=== PATIENT | male | born 1965 | race Caucasian/White ===

== ENCOUNTER 2022-10-21 18:27 | Inpatient (IN) | payer MEDICAID, OTHER ==
[~2022-10-21] VITALS: Ht 154.9 cm; Wt 86.6 kg
[2022-10-21] MEDS ORDERED: MORPHINE SULFATE 4 MG/ML CPJ (NOT FOR IM USE) IV ONE (20:45)
[2022-10-21] MEDS ORDERED: SODIUM CHLORIDE 0.9% 1,000 ML IV ONE (20:45)
[2022-10-21 20:54] LABS: BASOPHILS % 0.1 % (0.0-2.0); EOSINOPHILS % 0.1 % (0.0-5.0); HEMATOCRIT. 45.7 % (42.0-52.0); HEMOGLOBIN. 15.7 g/dL (14.0-18.0); LYMPHOCYTES % 7.9 % (20.0-50.0); MEAN CORPUSCULAR HEMOGLOBIN 30.7 pg (28.0-32.0); MEAN CORPUSCULAR VOLUME 89.6 fL (80.0-94.0); MEAN PLATELET VOLUME 8.4 fl (7.4-10.4); MONOCYTES % 2.4 % (2.0-8.0); NEUTROPHILS % 89.5 % (40.0-76.0); PLATELET 299 x1000/uL (130-400); RED CELL DISTRIBUTION WIDTH 13.3 % (11.6-14.6)
[2022-10-21] MEDS ORDERED: CEFTRIAXONE 1 G PREMIX 50 ML IV ONE (21:45)
[2022-10-21] MEDS ORDERED: SODIUM CHLORIDE 0.9% 1000ML BAG (SEPSIS BOLUS) IV ONE (21:45)
[2022-10-21] MEDS ORDERED: VANCOMYCIN 1G PREMIX 200 ML IV ONE (21:45)
[2022-10-21 22:50] LABS: CHLORIDE 88 mEq/L (98-107)
[2022-10-21] MEDS ORDERED: METRONIDAZOLE 500 MG PREMIX 100 ML IV ONE (23:00)
[2022-10-21] MEDS ORDERED: MORPHINE SULFATE 4 MG/ML CPJ (NOT FOR IM USE) IV NR (23:00)
[2022-10-22] MEDS ORDERED: FENTANYL CITRATE/PF 50MCG/ML 2ML VIAL ONE ×2 (00:19→02:34)
[2022-10-22] MEDS ORDERED: PROPOFOL 200MG/20ML VIAL IV ONE (00:20)
[2022-10-22] MEDS ORDERED: ROCURONIUM BROMIDE 10MG/ML VIAL 5ML IV ONE ×2 (00:23→02:07)
[2022-10-22] MEDS ORDERED: MORPHINE SULFATE 2 MG/ML CPJ (NOT FOR IM USE) IV PRN (01:30)
[2022-10-22] MEDS ORDERED: DEXT 5%/0.45% NACL KCL 20MEQ/L 1,000 ML IV SCH (01:30)
[2022-10-22] MEDS ORDERED: MORPHINE SULFATE 4 MG/ML CPJ (NOT FOR IM USE) IV PRN (01:30)
[2022-10-22] MEDS ORDERED: NALOXONE HCL 0.4MG/ML VIAL IV PRN ×2 (01:45→03:15)
[2022-10-22] MEDS ORDERED: ONDANSETRON HCL 4MG/2ML INJ ONE (02:21)
[2022-10-22] MEDS ORDERED: NEOSTIGMINE METHYLSULFATE 1MG/ML 10 ML VIAL ONE (02:22)
[2022-10-22] MEDS ORDERED: GLYCOPYRROLATE 0.2 MG/ML 2ML VIAL ONE ×2 (02:23)
[2022-10-22] MEDS ORDERED: HYDROMORPHONE HCL/PF 2MG/ML CPJ IV PRN (02:45)
[2022-10-22] MEDS ORDERED: ONDANSETRON HCL 4MG/2ML INJ IV PRN (02:45)
[2022-10-22] MEDS ORDERED: DIPHENHYDRAMINE INJ IV PRN (03:00)
[2022-10-22] MEDS ORDERED: ONDANSETRON INJ IV PRN (03:00)
[2022-10-22] MEDS: HYDROMORPHONE PCA 10MG/50ML IV PRN (03:06)
[2022-10-22 04:00] VITALS: BP 121/92
[2022-10-22] MEDS: DEXT 5%/0.45% NACL KCL 20MEQ/L 1,000 ML IV SCH ×2 (07:47→18:02)
[2022-10-22 08:00] VITALS: BP 137/91
[2022-10-22] MEDS: FAMOTIDINE 20MG/2ML VIAL IV SCH ×2 (08:46→21:09)
[2022-10-22 12:00] VITALS: BP 128/92
[2022-10-22] MEDS: PIPERACILLIN/TAZOBACTAM 3.375 G in DEXTROSE 5% WATER 50 ML IV SCH ×2 (14:23→21:09)
[2022-10-22 16:00] VITALS: BP 140/99
[2022-10-22 20:00] VITALS: BP 129/90
[2022-10-23] VITALS: BP 132/90
[2022-10-23 04:00] VITALS: BP 132/90
[2022-10-23] MEDS: DEXT 5%/0.45% NACL KCL 20MEQ/L 1,000 ML IV SCH ×3 (05:22→21:25)
[2022-10-23] MEDS: PIPERACILLIN/TAZOBACTAM 3.375 G in DEXTROSE 5% WATER 50 ML IV SCH ×3 (05:28→23:03)
[2022-10-23 08:00] VITALS: BP 126/57
[2022-10-23 09:08] LABS: HEMATOCRIT. 38.6 % (42.0-52.0); HEMOGLOBIN. 13.3 g/dL (14.0-18.0); MEAN CORPUSCULAR HEMOGLOBIN 30.5 pg (28.0-32.0); MEAN CORPUSCULAR VOLUME 88.7 fL (80.0-94.0); MEAN PLATELET VOLUME 8.6 fl (7.4-10.4); PLATELET 231 x1000/uL (130-400); RED BLOOD CELL COUNT 4.36 mill/uL (4.7-6.1); RED CELL DISTRIBUTION WIDTH 13.3 % (11.6-14.6)
[2022-10-23] MEDS: FAMOTIDINE 20MG/2ML VIAL IV SCH ×2 (09:08→21:25)
[2022-10-23] MEDS: HYDROMORPHONE PCA 10MG/50ML IV PRN (09:21)
[2022-10-23 09:30] LABS: CHLORIDE 90 mEq/L (98-107)
[2022-10-23] MEDS ORDERED: POTASSIUM CHLORIDE INJ 40 MEQ in DEXT 5% WATER 500 ML IV NR (11:00)
[2022-10-23 14:02] LABS: PLATELET ESTIMATE NORMAL
[2022-10-23 16:00] VITALS: BP 142/95
[2022-10-23 20:00] VITALS: BP 127/83
[2022-10-24] VITALS: BP 140/91
[2022-10-24 04:00] VITALS: BP 134/65
[2022-10-24] MEDS: PIPERACILLIN/TAZOBACTAM 3.375 G in DEXTROSE 5% WATER 50 ML IV SCH ×3 (06:11→21:37)
[2022-10-24 08:00] VITALS: BP 123/84
[2022-10-24 08:42] LABS: HEMATOCRIT. 37.2 % (42.0-52.0); MEAN CORPUSCULAR HEMOGLOBIN 31.1 pg (28.0-32.0); MEAN CORPUSCULAR VOLUME 88.7 fL (80.0-94.0); MEAN PLATELET VOLUME 8.8 fl (7.4-10.4); PLATELET 220 x1000/uL (130-400); RED BLOOD CELL COUNT 4.19 mill/uL (4.7-6.1); RED CELL DISTRIBUTION WIDTH 13.1 % (11.6-14.6)
[2022-10-24 08:48] LABS: CHLORIDE 90 mEq/L (98-107)
[2022-10-24] MEDS: DEXT 5%/0.45% NACL KCL 20MEQ/L 1,000 ML IV SCH ×2 (09:21→15:36)
[2022-10-24] MEDS: FAMOTIDINE 20MG/2ML VIAL IV SCH ×2 (09:21→21:37)
[2022-10-24 12:00] VITALS: BP 134/85
[2022-10-24] MEDS ORDERED: POTASSIUM CHLORIDE INJ 40 MEQ in DEXT 5% WATER 250 ML IV ONE (12:45)
[2022-10-24] MEDS: MICAFUNGIN 100 MG in SODIUM CHLORIDE 0.9% 100 ML IV SCH (14:00)
[2022-10-24 14:48] LABS: PLATELET ESTIMATE NORMAL
[2022-10-24] MEDS: KCL 20MEQ/100ML X 2 FOR TOTAL KCL 40MEQ/200ML IV SCH ×2 (15:36→17:36)
[2022-10-24 16:00] VITALS: BP 126/86
[2022-10-24] MEDS: POTASSIUM CHLORIDE INJ 30 MEQ in DEXT 5%/0.9% NACL 1,000 ML IV SCH (17:37)
[2022-10-24 20:00] VITALS: BP 138/94
[2022-10-25] VITALS: BP 125/73
[2022-10-25] MEDS: POTASSIUM CHLORIDE INJ 30 MEQ in DEXT 5%/0.9% NACL 1,000 ML IV SCH ×3 (01:09→21:27)
[2022-10-25 04:00] VITALS: BP 123/75
[2022-10-25] MEDS: PIPERACILLIN/TAZOBACTAM 3.375 G in DEXTROSE 5% WATER 50 ML IV SCH ×3 (05:39→21:07)
[2022-10-25 06:41] LABS: HEMATOCRIT. 37.4 % (42.0-52.0); HEMOGLOBIN. 13.1 g/dL (14.0-18.0); MEAN CORPUSCULAR HEMOGLOBIN 31.1 pg (28.0-32.0); MEAN CORPUSCULAR VOLUME 88.9 fL (80.0-94.0); MEAN PLATELET VOLUME 8.4 fl (7.4-10.4); PLATELET 241 x1000/uL (130-400); RED BLOOD CELL COUNT 4.21 mill/uL (4.7-6.1); RED CELL DISTRIBUTION WIDTH 13.1 % (11.6-14.6)
[2022-10-25 06:52] LABS: CHLORIDE 94 mEq/L (98-107)
[2022-10-25 08:00] VITALS: BP 139/87
[2022-10-25] MEDS: FAMOTIDINE 20MG/2ML VIAL IV SCH ×2 (08:21→21:07)
[2022-10-25 12:00] VITALS: BP 141/95
[2022-10-25] MEDS: MICAFUNGIN 100 MG in SODIUM CHLORIDE 0.9% 100 ML IV SCH (14:16)
[2022-10-25 14:38] LABS: ATYPICAL LYMPHOCYTES 1; PLATELET ESTIMATE NORMAL
[2022-10-25 16:00] VITALS: BP 130/78
[2022-10-25] MEDS ORDERED: MORPHINE SULFATE 2 MG/ML CPJ (NOT FOR IM USE) IV PRN (16:30)
[2022-10-25 20:00] VITALS: BP 131/94
[2022-10-26] VITALS: BP 143/88
[2022-10-26 04:00] VITALS: BP 139/89
[2022-10-26] MEDS: PIPERACILLIN/TAZOBACTAM 3.375 G in DEXTROSE 5% WATER 50 ML IV SCH ×3 (05:12→21:47)
[2022-10-26 06:59] LABS: CHLORIDE 98 mEq/L (98-107)
[2022-10-26 07:02] LABS: BASOPHILS % 0.3 % (0.0-2.0); EOSINOPHILS % 1.4 % (0.0-5.0); HEMATOCRIT. 36.5 % (42.0-52.0); HEMOGLOBIN. 12.7 g/dL (14.0-18.0); LYMPHOCYTES % 7.8 % (20.0-50.0); MEAN CORPUSCULAR HEMOGLOBIN 31.1 pg (28.0-32.0); MEAN CORPUSCULAR VOLUME 89.5 fL (80.0-94.0); MEAN PLATELET VOLUME 8.1 fl (7.4-10.4); MONOCYTES % 7.6 % (2.0-8.0); NEUTROPHILS % 82.9 % (40.0-76.0); PLATELET 284 x1000/uL (130-400); RED BLOOD CELL COUNT 4.07 mill/uL (4.7-6.1); RED CELL DISTRIBUTION WIDTH 13.2 % (11.6-14.6)
[2022-10-26] MEDS: POTASSIUM CHLORIDE INJ 30 MEQ in DEXT 5%/0.9% NACL 1,000 ML IV SCH (07:36)
[2022-10-26 08:36] VITALS: BP 125/72
[2022-10-26] MEDS: FAMOTIDINE 20MG/2ML VIAL IV SCH ×2 (10:18→20:44)
[2022-10-26 12:09] VITALS: BP 122/75
[2022-10-26] MEDS: MICAFUNGIN 100 MG in SODIUM CHLORIDE 0.9% 100 ML IV SCH (15:54)
[2022-10-26 16:00] VITALS: BP 130/82
[2022-10-26] MEDS ORDERED: POTASSIUM CHLORIDE INJ 40 MEQ in DEXT 5% WATER 500 ML IV NR (16:00)
[2022-10-26 20:00] VITALS: BP 123/73
[2022-10-27] VITALS: BP 131/81
[2022-10-27] MEDS: POTASSIUM CHLORIDE INJ 30 MEQ in DEXT 5%/0.9% NACL 1,000 ML IV SCH ×2 (03:10→13:44)
[2022-10-27 04:00] VITALS: BP 139/84
[2022-10-27] MEDS: PIPERACILLIN/TAZOBACTAM 3.375 G in DEXTROSE 5% WATER 50 ML IV SCH ×3 (05:36→22:56)
[2022-10-27 08:00] VITALS: BP 158/88
[2022-10-27] MEDS: FAMOTIDINE 20MG/2ML VIAL IV SCH ×2 (08:37→20:55)
[2022-10-27] MEDS: MICAFUNGIN 100 MG in SODIUM CHLORIDE 0.9% 100 ML IV SCH (13:43)
[2022-10-27] MEDS ORDERED: DIATR MEGLU/DIATRIZOATE SOLN 30ML PO NR (15:45)
[2022-10-27 16:00] VITALS: BP 144/90
[2022-10-27 20:00] VITALS: BP 141/90
[2022-10-28] VITALS: BP 130/79
[2022-10-28] MEDS: POTASSIUM CHLORIDE INJ 30 MEQ in DEXT 5%/0.9% NACL 1,000 ML IV SCH ×3 (01:13→20:30)
[2022-10-28] MEDS ORDERED: IOHEXOL-300 100 ML BOTTLE ONE (01:45)
[2022-10-28 04:00] VITALS: BP 135/87
[2022-10-28] MEDS: PIPERACILLIN/TAZOBACTAM 3.375 G in DEXTROSE 5% WATER 50 ML IV SCH ×3 (06:03→22:00)
[2022-10-28 08:00] VITALS: BP 141/91
[2022-10-28] MEDS: FAMOTIDINE 20MG/2ML VIAL IV SCH ×2 (08:54→22:01)
[2022-10-28 12:00] VITALS: BP 129/85
[2022-10-28] MEDS: MICAFUNGIN 100 MG in SODIUM CHLORIDE 0.9% 100 ML IV SCH (13:43)
[2022-10-28 16:00] VITALS: BP 123/86
[2022-10-28 18:50] LABS: BASOPHILS % 0.3 % (0.0-2.0); HEMATOCRIT. 40.8 % (42.0-52.0); HEMOGLOBIN. 13.7 g/dL (14.0-18.0); LYMPHOCYTES % 13.5 % (20.0-50.0); MEAN CORPUSCULAR HEMOGLOBIN 30.5 pg (28.0-32.0); MEAN PLATELET VOLUME 8.2 fl (7.4-10.4); MONOCYTES % 5.4 % (2.0-8.0); NEUTROPHILS % 78.8 % (40.0-76.0); PLATELET 378 x1000/uL (130-400); RED BLOOD CELL COUNT 4.49 mill/uL (4.7-6.1); RED CELL DISTRIBUTION WIDTH 13.5 % (11.6-14.6)
[2022-10-28 19:15] LABS: CHLORIDE 100 mEq/L (98-107)
[2022-10-28 20:00] VITALS: BP 120/85
[2022-10-29] VITALS (7 sets, daily range): BP systolic 112–138; BP diastolic 73–91
[2022-10-29] MEDS: POTASSIUM CHLORIDE INJ 30 MEQ in DEXT 5%/0.9% NACL 1,000 ML IV SCH ×2 (05:46→16:48)
[2022-10-29] MEDS: PIPERACILLIN/TAZOBACTAM 3.375 G in DEXTROSE 5% WATER 50 ML IV SCH ×3 (05:46→22:30)
[2022-10-29] MEDS: FAMOTIDINE 20MG/2ML VIAL IV SCH (09:55)
[2022-10-29] MEDS ORDERED: OMEP40CA20 MT (10:22)
[2022-10-29] MEDS: MICAFUNGIN 100 MG in SODIUM CHLORIDE 0.9% 100 ML IV SCH (13:39)
[2022-10-29] MEDS: FAMOTIDINE 20MG TABLET PO SCH (21:00)
[2022-10-30] VITALS: BP 120/80
[2022-10-30 04:00] VITALS: BP 125/72
[2022-10-30] MEDS: POTASSIUM CHLORIDE INJ 30 MEQ in DEXT 5%/0.9% NACL 1,000 ML IV SCH (04:05)
[2022-10-30 08:00] VITALS: BP 137/86
[2022-10-30] MEDS: FAMOTIDINE 20MG TABLET PO SCH (09:51)
[2022-10-30] MEDS ORDERED: HYDR-4001 MT (10:05)
[2022-10-30 12:00] VITALS: BP 101/60
== END 2022-10-30 15:00 | disposition home or self-care (01) | DRG 710 ==
LOC: ER 18:27 → EDBEDREQTM 23:04 → EDBEDREQ 23:04 → EDBEDREQSVC 23:04 → MICUSO 23:53 → 6EST 10-22 04:28
PROVIDERS: ADMIT Internal Medicine; ATTEND Internal Medicine
PROC: 0WJG0ZZ Inspection of Peritoneal Cavity, Open Approach (ICD-10-PCS; principal; 2022-10-22)
DX: A41.9 Sepsis, unspecified organism (principal); K27.5 Chronic or unspecified peptic ulcer, site unspecified, with perforation; E87.20 Acidosis, unspecified; E44.1 Mild protein-calorie malnutrition; E87.1 Hypo-osmolality and hyponatremia; E88.09 Other disorders of plasma-protein metabolism, not elsewhere classified; Z20.822 Contact with and (suspected) exposure to COVID-19; E11.9 Type 2 diabetes mellitus without complications; R65.20 Severe sepsis without septic shock; I10 Essential (primary) hypertension; E78.00 Pure hypercholesterolemia, unspecified; F10.10 Alcohol abuse, uncomplicated; Z68.30 Body mass index [BMI] 30.0-30.9, adult; Z68.36 Body mass index [BMI] 36.0-36.9, adult
CPT/HCPCS: 36415; 71045; 74176; 74177; 80048; 80053; 83605; 83880; 84145; 84484; 85025; 87070; 87075; 87106; 87426; 97116; 97162; 99291; C9803; J0696; J1170; J2248; J2270; J2405; J2543; J2704; J2710; J3010; J3480; J3490; J7030; J7042; J7050; J7060; Q9963; Q9967

== ENCOUNTER 2022-11-06 10:04 | Emergency (ER) | payer OTHER ==
[~2022-11-06] VITALS: Ht 167.6 cm; Wt 79.0 kg
[~2022-11-06 10:04] MED LIST: HYDR-4001 MT; OMEP40CA20 MT
[2022-11-06 10:18] VITALS: BP 106/74
== END 2022-11-06 11:47 | disposition home or self-care (01) ==
LOC: ER 10:04
DX: Z48.00 Encounter for change or removal of nonsurgical wound dressing (principal)
CPT/HCPCS: 99281

== ENCOUNTER 2022-11-30 15:28 | Inpatient (IN) | payer OTHER ==
[~2022-11-30] VITALS: Ht 154.9 cm; Wt 81.6 kg
[2022-11-30 17:08] LABS: HEMATOCRIT. 42.8 % (42.0-52.0); HEMOGLOBIN. 14.4 g/dL (14.0-18.0); MEAN CORPUSCULAR HEMOGLOBIN 29.6 pg (28.0-32.0); MEAN CORPUSCULAR VOLUME 88.2 fL (80.0-94.0); MEAN PLATELET VOLUME 8.8 fl (7.4-10.4); PLATELET 221 x1000/uL (130-400); RED BLOOD CELL COUNT 4.85 mill/uL (4.7-6.1); RED CELL DISTRIBUTION WIDTH 14.5 % (11.6-14.6)
[2022-11-30 17:11] LABS: CHLORIDE 101 mEq/L (98-107)
[2022-11-30 17:12] LABS: PROTHROMBIN TIME 10.9 sec (9.6-11.0)
[2022-11-30 17:18] LABS: ETHANOL BLOOD < 10 mg/dL
[2022-11-30 18:19] LABS: PLATELET ESTIMATE NORMAL
[2022-11-30] MEDS ORDERED: MORPHINE SULFATE 4 MG/ML CPJ (NOT FOR IM USE) IV STA (22:59)
[2022-11-30] MEDS ORDERED: ONDANSETRON HCL 4MG/2ML INJ IV STA (22:59)
[2022-11-30] MEDS ORDERED: METRONIDAZOLE 500 MG PREMIX 100 ML IV ONE (23:00)
[2022-11-30] MEDS ORDERED: CEFTRIAXONE 1 G PREMIX 50 ML IV ONE (23:00)
[2022-12-01] MEDS ORDERED: SODIUM CHLORIDE 0.9% 1,000 ML IV NR (05:15)
[2022-12-01] MEDS ORDERED: SODIUM CHLORIDE 0.9% 1,000 ML IV ONE (05:15)
[2022-12-01] MEDS ORDERED: ACETAMINOPHEN 325MG TABLET PO PRN (09:30)
[2022-12-01] MEDS ORDERED: NALOXONE HCL 0.4MG/ML VIAL IV PRN (09:30)
[2022-12-01] MEDS ORDERED: ONDANSETRON HCL 4MG/2ML INJ IV PRN (09:30)
[2022-12-01] MEDS ORDERED: DEXTROSE 50% WATER 50ML SYRINGE IV PRN (09:45)
[2022-12-01] MEDS ORDERED: PIPERACILLIN/TAZ 3.375G PREMIX 50 ML IV NR (10:00)
[2022-12-01] MEDS: SODIUM CHLORIDE 0.45% 1,000 ML IV SCH ×2 (10:39→22:14)
[2022-12-01] MEDS: OMEPRAZOLE 20MG CAPSULE EXTENDED RELEASE PO SCH (10:40)
[2022-12-01] MEDS: HYDROCODONE/ACETAMINOPHEN 5/325MG TABLET PO PRN ×2 (11:42→20:15)
[2022-12-01] MEDS: BLOOD SUGAR DIAGNOSTIC STRIP TEST SCH ×3 (12:40→21:00)
[2022-12-01 12:45] VITALS: BP 94/63
[2022-12-01 13:00] VITALS: BP 94/63
[2022-12-01] MEDS: INSULIN LISPRO 100 UNITS/ML SUBCUT SCH ×3 (13:07→21:00)
[2022-12-01] MEDS ORDERED: AMLO-138 MT (14:16)
[2022-12-01] MEDS ORDERED: ASPI-1406 MT (14:16)
[2022-12-01] MEDS ORDERED: PRAV40TA58 MT (14:16)
[2022-12-01] MEDS ORDERED: EMPA25TA MT (14:16)
[2022-12-01 16:00] VITALS: BP 95/59
[2022-12-01 16:10] LABS: CREATINE KINASE 15 IU/L (39-308)
[2022-12-01 17:35] LABS: HEPATITIS B SURFACE ANTIGEN NEGATIVE
[2022-12-01] MEDS ORDERED: PIPERACILLIN/TAZOBACTAM 3.375 G in DEXTROSE 5% WATER 50 ML IV SCH (20:00)
[2022-12-01 20:03] VITALS: BP 102/64
[2022-12-01 21:56] LABS: CLARITY URINE CLEAR (CLEAR); COLOR URINE YELLOW (YELLOW); KETONES URINE NEGATIVE (NEGATIVE); LEUKOCYTE ESTERASE URINE NEGATIVE (NEGATIVE); NITRITE URINE NEGATIVE (NEGATIVE); OCCULT BLOOD URINE TRACE (NEGATIVE); PROTEIN URINE 2+ (NEGATIVE); SPECIFIC GRAVITY URINE 1.023 (1.005-1.030)
[2022-12-01] MEDS: PIPERACILLIN/TAZOBACTAM 3.375 G in DEXTROSE 5% WATER 50 ML IV SCH (22:13)
[2022-12-01 23:59] VITALS: BP 93/60
[2022-12-02] MEDS: HYDROCODONE/ACETAMINOPHEN 5/325MG TABLET PO PRN ×2 (00:38→04:24)
[2022-12-02 04:00] VITALS: BP 94/49
[2022-12-02] MEDS: PIPERACILLIN/TAZOBACTAM 3.375 G in DEXTROSE 5% WATER 50 ML IV SCH ×3 (05:20→21:57)
[2022-12-02] MEDS: BLOOD SUGAR DIAGNOSTIC STRIP TEST SCH ×4 (05:20→21:56)
[2022-12-02] MEDS: INSULIN LISPRO 100 UNITS/ML SUBCUT SCH ×4 (05:23→21:00)
[2022-12-02 06:42] LABS: BASOPHILS % 0.2 % (0.0-2.0); EOSINOPHILS % 1.1 % (0.0-5.0); HEMATOCRIT. 39.2 % (42.0-52.0); HEMOGLOBIN. 13.2 g/dL (14.0-18.0); MEAN CORPUSCULAR HEMOGLOBIN 29.8 pg (28.0-32.0); MEAN CORPUSCULAR VOLUME 88.5 fL (80.0-94.0); MEAN PLATELET VOLUME 9.1 fl (7.4-10.4); MONOCYTES % 3.9 % (2.0-8.0); NEUTROPHILS % 86.8 % (40.0-76.0); PLATELET 177 x1000/uL (130-400); RED BLOOD CELL COUNT 4.43 mill/uL (4.7-6.1); RED CELL DISTRIBUTION WIDTH 14.3 % (11.6-14.6)
[2022-12-02 07:33] LABS: CHLORIDE 102 mEq/L (98-107)
[2022-12-02 08:00] VITALS: BP 92/54
[2022-12-02] MEDS: OMEPRAZOLE 20MG CAPSULE EXTENDED RELEASE PO SCH (08:12)
[2022-12-02 12:00] VITALS: BP 102/61
[2022-12-02] MEDS ORDERED: HYDROCODONE/ACETAMINOPHEN 5/325MG TABLET PO PRN (12:15)
[2022-12-02] MEDS: SODIUM CHLORIDE 0.45% 1,000 ML IV SCH (13:42)
[2022-12-02] MEDS: HYDROCODONE/ACETAMINOPHEN 10/325MG TABLET PO PRN (15:55)
[2022-12-02 16:00] VITALS: BP 101/72
[2022-12-02 20:00] VITALS: BP 111/61
[2022-12-03] VITALS: BP 111/60
[2022-12-03 04:00] VITALS: BP 106/66
[2022-12-03] MEDS: PIPERACILLIN/TAZOBACTAM 3.375 G in DEXTROSE 5% WATER 50 ML IV SCH (06:00)
[2022-12-03] MEDS: SODIUM CHLORIDE 0.45% 1,000 ML IV SCH (06:00)
[2022-12-03] MEDS: HYDROCODONE/ACETAMINOPHEN 10/325MG TABLET PO PRN (06:00)
[2022-12-03] MEDS: BLOOD SUGAR DIAGNOSTIC STRIP TEST SCH ×2 (07:51→12:48)
[2022-12-03 08:00] VITALS: BP 110/65
[2022-12-03] MEDS: INSULIN LISPRO 100 UNITS/ML SUBCUT SCH ×2 (08:10→12:48)
[2022-12-03] MEDS: OMEPRAZOLE 20MG CAPSULE EXTENDED RELEASE PO SCH (09:16)
[2022-12-03] MEDS ORDERED: LEVO-65 MT (11:35)
[2022-12-03] MEDS ORDERED: METR-167 MT (11:35)
[2022-12-03 12:00] VITALS: BP 114/84
[2022-12-03 12:49] VITALS: BP 114/84
== END 2022-12-03 19:02 | disposition home or self-care (01) | DRG 244 ==
LOC: ER 15:28 → 7WST 12-01 04:42
PROVIDERS: ADMIT Internal Medicine; ATTEND Internal Medicine
DX: K57.32 Diverticulitis of large intestine without perforation or abscess without bleeding (principal); N17.0 Acute kidney failure with tubular necrosis; R65.11 Systemic inflammatory response syndrome (SIRS) of non-infectious origin with acute organ dysfunction; E43 Unspecified severe protein-calorie malnutrition; E11.9 Type 2 diabetes mellitus without complications; E66.9 Obesity, unspecified; E78.00 Pure hypercholesterolemia, unspecified; F10.10 Alcohol abuse, uncomplicated; I10 Essential (primary) hypertension; Z20.822 Contact with and (suspected) exposure to COVID-19; Z87.11 Personal history of peptic ulcer disease; Z68.34 Body mass index [BMI] 34.0-34.9, adult; Z79.4 Long term (current) use of insulin
CPT/HCPCS: 36415; 74176; 80048; 80053; 80076; 80320; 81003; 82550; 82962; 85025; 86803; 87340; 87426; 93005; 99285; C9803; J0696; J2270; J2405; J2543; J3490; J7060; G0480

== ENCOUNTER 2022-12-04 20:39 | Inpatient (IN) | payer OTHER ==
[~2022-12-04] VITALS: Ht 154.9 cm; Wt 82.7 kg
[~2022-12-04 20:39] MED LIST changes: +AMLO-138 MT; +ASPI-1406 MT; +EMPA25TA MT; +LEVO-65 MT; +METR-167 MT; +PRAV40TA58 MT
[2022-12-04] MEDS ORDERED: MORPHINE SULFATE 4 MG/ML CPJ (NOT FOR IM USE) IV STA (21:42)
[2022-12-04] MEDS ORDERED: ONDANSETRON HCL 4MG/2ML INJ IV STA (21:42)
[2022-12-04] MEDS ORDERED: SODIUM CHLORIDE 0.9% 1000ML BAG (SEPSIS BOLUS) IV ONE (21:45)
[2022-12-04] MEDS ORDERED: SODIUM CHLORIDE 0.9% 1,000 ML IV ONE (21:45)
[2022-12-04 22:48] LABS: BASOPHILS % 0.3 % (0.0-2.0); EOSINOPHILS % 0.4 % (0.0-5.0); HEMATOCRIT. 38.9 % (42.0-52.0); HEMOGLOBIN. 13.6 g/dL (14.0-18.0); LYMPHOCYTES % 10.4 % (20.0-50.0); MEAN CORPUSCULAR HEMOGLOBIN 29.9 pg (28.0-32.0); MEAN CORPUSCULAR VOLUME 85.5 fL (80.0-94.0); MEAN PLATELET VOLUME 8.3 fl (7.4-10.4); MONOCYTES % 4.1 % (2.0-8.0); NEUTROPHILS % 84.8 % (40.0-76.0); PLATELET 265 x1000/uL (130-400); RED BLOOD CELL COUNT 4.55 mill/uL (4.7-6.1); RED CELL DISTRIBUTION WIDTH 14.6 % (11.6-14.6)
[2022-12-04 22:56] LABS: CHLORIDE 94 mEq/L (98-107)
[2022-12-04] MEDS ORDERED: METRONIDAZOLE 500 MG PREMIX 100 ML IV ONE (23:45)
[2022-12-04] MEDS ORDERED: PIPERACILLIN/TAZ 3.375G PREMIX 50 ML IV ONE (23:45)
[2022-12-04] MEDS ORDERED: VANCOMYCIN 1G PREMIX 200 ML IV ONE (23:45)
[2022-12-05] VITALS (28 sets, daily range): BP systolic 109–140; BP diastolic 66–89
[2022-12-05 01:49] LABS: CLARITY URINE CLEAR (CLEAR); COLOR URINE YELLOW (YELLOW); KETONES URINE 1+ (NEGATIVE); LEUKOCYTE ESTERASE URINE NEGATIVE (NEGATIVE); NITRITE URINE NEGATIVE (NEGATIVE); OCCULT BLOOD URINE NEGATIVE (NEGATIVE); PROTEIN URINE NEGATIVE (NEGATIVE); SPECIFIC GRAVITY URINE 1.021 (1.005-1.030)
[2022-12-05] MEDS ORDERED: NALOXONE HCL 0.4MG/ML VIAL IV PRN (09:45)
[2022-12-05] MEDS ORDERED: MORPHINE SULFATE 2 MG/ML CPJ (NOT FOR IM USE) IV PRN (09:45)
[2022-12-05] MEDS: SODIUM CHLORIDE 0.9% 1,000 ML IV SCH ×2 (10:17→19:45)
[2022-12-05 12:14] LABS: HEMATOCRIT 35.5 % (42.0-52.0); HEMOGLOBIN 11.8 g/dL (14.0-18.0); MEAN CORPUSCULAR VOLUME 86.9 fL (80.0-94.0); PLATELET 257 x1000/uL (130-400); RED BLOOD CELL COUNT 4.09 mill/uL (4.7-6.1); RED CELL DISTRIBUTION WIDTH 14.7 % (11.6-14.6)
[2022-12-05 12:27] LABS: INR 1.1; PARTIAL THROMBOPLASTIN TIME 31.9 sec (23.4-31.0); PROTHROMBIN TIME 12.2 sec (9.6-11.0)
[2022-12-05 13:05] LABS: CHLORIDE 101 mEq/L (98-107)
[2022-12-05] MEDS ORDERED: POTASSIUM CHLORIDE INJ 40 MEQ in DEXT 5% WATER 250 ML IV ONE (13:30)
[2022-12-05] MEDS: KCL 20MEQ/100ML X 2 FOR TOTAL KCL 40MEQ/200ML IV SCH ×2 (13:53→16:50)
[2022-12-05] MEDS: PIPERACILLIN/TAZOBACTAM 3.375 G in DEXTROSE 5% WATER 50 ML IV SCH ×2 (13:53→21:00)
[2022-12-05] MEDS ORDERED: ONDANSETRON HCL 4MG/2ML INJ IV PRN (14:45)
[2022-12-05] MEDS ORDERED: CLONIDINE 0.1MG TABLET PO PRN (14:45)
[2022-12-05] MEDS ORDERED: ACETAMINOPHEN 650MG/20.3ML UDC GT PRN (14:45)
[2022-12-05] MEDS: ENOXAPARIN 30MG/0.3ML SYR SUBCUT SCH (16:15)
[2022-12-05] MEDS ORDERED: DEXTROSE 50% WATER 50ML SYRINGE IV PRN (16:15)
[2022-12-05] MEDS: BLOOD SUGAR DIAGNOSTIC STRIP TEST SCH ×2 (17:22→20:11)
[2022-12-05] MEDS: INSULIN LISPRO 100 UNITS/ML SUBCUT SCH ×2 (17:22→20:59)
[2022-12-05] MEDS: VANCOMYCIN 1G PREMIX 200 ML IV SCH (17:57)
[2022-12-06] VITALS (12 sets, daily range): BP systolic 108–131; BP diastolic 61–87
[2022-12-06] MEDS: SODIUM CHLORIDE 0.9% 1,000 ML IV SCH ×2 (02:10→15:58)
[2022-12-06] MEDS: VANCOMYCIN 1G PREMIX 200 ML IV SCH ×2 (04:52→17:43)
[2022-12-06] MEDS: PIPERACILLIN/TAZOBACTAM 3.375 G in DEXTROSE 5% WATER 50 ML IV SCH ×3 (05:15→21:19)
[2022-12-06] MEDS: ENOXAPARIN 30MG/0.3ML SYR SUBCUT SCH ×2 (05:15→17:03)
[2022-12-06 05:32] LABS: BASOPHILS % 0.1 % (0.0-2.0); EOSINOPHILS % 0.2 % (0.0-5.0); HEMATOCRIT. 35.8 % (42.0-52.0); HEMOGLOBIN. 12.2 g/dL (14.0-18.0); LYMPHOCYTES % 7.9 % (20.0-50.0); MEAN CORPUSCULAR HEMOGLOBIN 29.3 pg (28.0-32.0); MEAN CORPUSCULAR VOLUME 85.7 fL (80.0-94.0); MEAN PLATELET VOLUME 7.9 fl (7.4-10.4); MONOCYTES % 3.2 % (2.0-8.0); NEUTROPHILS % 88.6 % (40.0-76.0); PLATELET 302 x1000/uL (130-400); RED BLOOD CELL COUNT 4.18 mill/uL (4.7-6.1); RED CELL DISTRIBUTION WIDTH 14.5 % (11.6-14.6)
[2022-12-06 05:50] LABS: CHLORIDE 95 mEq/L (98-107)
[2022-12-06] MEDS: BLOOD SUGAR DIAGNOSTIC STRIP TEST SCH ×4 (08:14→21:20)
[2022-12-06] MEDS: INSULIN LISPRO 100 UNITS/ML SUBCUT SCH ×4 (08:14→21:00)
[2022-12-06] MEDS ORDERED: IPRATROPIUM BROMIDE (0.02%) 0.5MG/2.5ML NEB HHN PRN (10:45)
[2022-12-06] MEDS ORDERED: ALBUTEROL (0.083%) 2.5MG/3ML NEB HHN PRN (10:45)
[2022-12-06] MEDS ORDERED: IPRATROPIUM/ALBUTEROL 0.5-3(2.5)MG/3ML NEB HHN PRN (10:45)
[2022-12-06] MEDS ORDERED: POTASSIUM CHLORIDE INJ 40 MEQ in DEXT 5% WATER 250 ML IV ONE (13:45)
[2022-12-06] MEDS ORDERED: MENTHOL/LANOLIN/CALAMINE/ZN OX OINT 71GM TOP PRN (15:00)
[2022-12-06] MEDS ORDERED: KCL 20MEQ/100ML X 2 FOR TOTAL KCL 40MEQ/200ML IV SCH (15:00)
[2022-12-06] MEDS ORDERED: POTASSIUM CHLORIDE 20MEQ TABLET SR PO NR (16:00)
[2022-12-06] MEDS: DOCUSATE SODIUM 100MG CAPSULE PO SCH (17:43)
[2022-12-06] MEDS: ACETAMINOPHEN 325MG TABLET PO PRN (18:00)
[2022-12-07] VITALS (17 sets, daily range): BP systolic 110–134; BP diastolic 69–85
[2022-12-07] MEDS: VANCOMYCIN 1G PREMIX 200 ML IV SCH ×3 (04:57→20:22)
[2022-12-07] MEDS: ENOXAPARIN 30MG/0.3ML SYR SUBCUT SCH ×2 (06:00→18:06)
[2022-12-07 06:08] LABS: MEAN CORPUSCULAR HEMOGLOBIN 29.2 pg (28.0-32.0); MEAN CORPUSCULAR VOLUME 85.5 fL (80.0-94.0); MEAN PLATELET VOLUME 7.9 fl (7.4-10.4); PLATELET 372 x1000/uL (130-400); RED CELL DISTRIBUTION WIDTH 14.8 % (11.6-14.6)
[2022-12-07 06:27] LABS: CHLORIDE 99 mEq/L (98-107)
[2022-12-07] MEDS: INSULIN LISPRO 100 UNITS/ML SUBCUT SCH ×4 (07:10→20:41)
[2022-12-07] MEDS: PIPERACILLIN/TAZOBACTAM 3.375 G in DEXTROSE 5% WATER 50 ML IV SCH ×3 (07:30→21:58)
[2022-12-07] MEDS: BLOOD SUGAR DIAGNOSTIC STRIP TEST SCH ×4 (07:30→20:41)
[2022-12-07] MEDS ORDERED: POTASSIUM CHLORIDE INJ 40 MEQ in DEXT 5% WATER 250 ML IV ONE (08:15)
[2022-12-07] MEDS: DOCUSATE SODIUM 100MG CAPSULE PO SCH ×2 (09:00→17:47)
[2022-12-07] MEDS: KCL 20MEQ/100ML X 2 FOR TOTAL KCL 40MEQ/200ML IV SCH ×2 (09:43→12:19)
[2022-12-07] MEDS ORDERED: LIDOCAINE HCL 1% 10 MG/ML 10ML VIAL ONE (11:07)
[2022-12-07] MEDS ORDERED: SODIUM BICARBONATE 4% (2.4MEQ) 5ML VIAL IV ONE (11:07)
[2022-12-07 11:10] LABS: PLATELET ESTIMATE NORMAL
[2022-12-07] MEDS: SODIUM CHLORIDE 0.9% 1,000 ML IV SCH ×2 (11:45→17:50)
[2022-12-07] MEDS ORDERED: FENTANYL CITRATE/PF 50MCG/ML 2ML VIAL ONE (12:55)
[2022-12-07] MEDS ORDERED: FENTANYL CITRATE/PF 50MCG/ML 2ML VIAL IV ONE (13:30)
[2022-12-07] MEDS: ACETAMINOPHEN 325MG TABLET PO PRN (20:22)
[2022-12-08] VITALS: BP 123/75
[2022-12-08 04:00] VITALS: BP 123/81
[2022-12-08] MEDS: VANCOMYCIN 1G PREMIX 200 ML IV SCH ×2 (05:04→21:55)
[2022-12-08] MEDS: ENOXAPARIN 30MG/0.3ML SYR SUBCUT SCH (05:58)
[2022-12-08] MEDS: BLOOD SUGAR DIAGNOSTIC STRIP TEST SCH ×4 (06:02→21:12)
[2022-12-08] MEDS: INSULIN LISPRO 100 UNITS/ML SUBCUT SCH ×4 (06:02→21:00)
[2022-12-08] MEDS: SODIUM CHLORIDE 0.9% 1,000 ML IV SCH ×2 (07:45→17:23)
[2022-12-08 07:50] LABS: CHLORIDE 102 mEq/L (98-107)
[2022-12-08 08:00] VITALS: BP 146/86
[2022-12-08] MEDS: PIPERACILLIN/TAZOBACTAM 3.375 G in DEXTROSE 5% WATER 50 ML IV SCH ×3 (08:55→23:48)
[2022-12-08] MEDS: DOCUSATE SODIUM 100MG CAPSULE PO SCH ×2 (08:56→17:25)
[2022-12-08] MEDS: ACETAMINOPHEN 325MG TABLET PO PRN (09:07)
[2022-12-08 12:00] VITALS: BP 128/80
[2022-12-08] MEDS ORDERED: POTASSIUM CHLORIDE INJ 40 MEQ in DEXT 5% WATER 250 ML IV ONE (12:00)
[2022-12-08] MEDS: KCL 20MEQ/100ML X 2 FOR TOTAL KCL 40MEQ/200ML IV SCH ×2 (12:35→21:06)
[2022-12-08 16:00] VITALS: BP 119/75
[2022-12-08 20:00] VITALS: BP 128/81
[2022-12-09] VITALS: BP 126/80
[2022-12-09 04:00] VITALS: BP 133/80
[2022-12-09] MEDS: VANCOMYCIN 1G PREMIX 200 ML IV SCH (04:26)
[2022-12-09] MEDS: ENOXAPARIN 40MG/0.4ML SYR SUBCUT SCH (06:26)
[2022-12-09] MEDS: PIPERACILLIN/TAZOBACTAM 3.375 G in DEXTROSE 5% WATER 50 ML IV SCH ×3 (06:26→22:17)
[2022-12-09] MEDS: BLOOD SUGAR DIAGNOSTIC STRIP TEST SCH ×4 (06:34→20:53)
[2022-12-09] MEDS: INSULIN LISPRO 100 UNITS/ML SUBCUT SCH ×4 (06:34→20:52)
[2022-12-09 07:12] LABS: BASOPHILS % 0.3 % (0.0-2.0); EOSINOPHILS % 1.1 % (0.0-5.0); HEMATOCRIT. 36.6 % (42.0-52.0); HEMOGLOBIN. 12.2 g/dL (14.0-18.0); MEAN CORPUSCULAR VOLUME 86.8 fL (80.0-94.0); MEAN PLATELET VOLUME 7.5 fl (7.4-10.4); MONOCYTES % 6.7 % (2.0-8.0); NEUTROPHILS % 74.9 % (40.0-76.0); PLATELET 547 x1000/uL (130-400); RED BLOOD CELL COUNT 4.22 mill/uL (4.7-6.1); RED CELL DISTRIBUTION WIDTH 14.5 % (11.6-14.6)
[2022-12-09 07:16] LABS: CHLORIDE 104 mEq/L (98-107)
[2022-12-09 08:00] VITALS: BP 138/88
[2022-12-09] MEDS: DOCUSATE SODIUM 100MG CAPSULE PO SCH ×2 (09:07→17:00)
[2022-12-09] MEDS: POTASSIUM CHLORIDE 20MEQ TABLET SR PO SCH ×4 (10:00→14:14)
[2022-12-09] MEDS ORDERED: HYDR-4001 MT (10:32)
[2022-12-09 12:00] VITALS: BP 137/89
[2022-12-09] MEDS ORDERED: METR-167 MT (12:16)
[2022-12-09] MEDS ORDERED: DOCU-138 MT (12:16)
[2022-12-09] MEDS ORDERED: LEVO750T68 MT (12:16)
[2022-12-09] MEDS: ACETAMINOPHEN 325MG TABLET PO PRN (14:10)
[2022-12-09] MEDS: POTASSIUM CHLORIDE 20MEQ TABLET SR PO NR ×2 (14:11→15:02)
[2022-12-09] MEDS ORDERED: POTASSIUM CHLORIDE 20MEQ TABLET SR PO NR (15:00)
[2022-12-09 16:00] VITALS: BP 124/84
[2022-12-09 20:00] VITALS: BP 135/80
[2022-12-09] MEDS: SODIUM CHLORIDE 0.9% 1,000 ML IV SCH (20:56)
[2022-12-10] VITALS: BP 139/86
[2022-12-10 04:00] VITALS: BP 134/80
[2022-12-10] MEDS: PIPERACILLIN/TAZOBACTAM 3.375 G in DEXTROSE 5% WATER 50 ML IV SCH (06:03)
[2022-12-10] MEDS: ENOXAPARIN 40MG/0.4ML SYR SUBCUT SCH (06:03)
[2022-12-10 06:22] LABS: CHLORIDE 109 mEq/L (98-107)
[2022-12-10 06:51] LABS: BASOPHILS % 0.4 % (0.0-2.0); EOSINOPHILS % 0.8 % (0.0-5.0); HEMATOCRIT. 35.9 % (42.0-52.0); HEMOGLOBIN. 12.2 g/dL (14.0-18.0); LYMPHOCYTES % 16.4 % (20.0-50.0); MEAN CORPUSCULAR HEMOGLOBIN 29.2 pg (28.0-32.0); MEAN CORPUSCULAR VOLUME 86.2 fL (80.0-94.0); MEAN PLATELET VOLUME 7.5 fl (7.4-10.4); MONOCYTES % 7.7 % (2.0-8.0); NEUTROPHILS % 74.7 % (40.0-76.0); PLATELET 599 x1000/uL (130-400); RED BLOOD CELL COUNT 4.16 mill/uL (4.7-6.1); RED CELL DISTRIBUTION WIDTH 14.8 % (11.6-14.6)
[2022-12-10] MEDS: INSULIN LISPRO 100 UNITS/ML SUBCUT SCH ×2 (06:55→12:10)
[2022-12-10] MEDS: BLOOD SUGAR DIAGNOSTIC STRIP TEST SCH ×2 (06:55→11:40)
[2022-12-10 08:00] VITALS: BP 126/80
[2022-12-10] MEDS: DOCUSATE SODIUM 100MG CAPSULE PO SCH (08:12)
[2022-12-10] MEDS ORDERED: IOHEXOL-300 50 ML BOTTLE IV ONE (12:09)
[2022-12-10 15:41] VITALS: BP 126/89
[2022-12-10 15:44] VITALS: BP 126/89
== END 2022-12-10 16:10 | disposition home health service (06) | DRG 720 ==
LOC: ER 21:07 → CVICU 12-05 00:01 → EDBEDREQTM 12-05 00:05 → EDBEDREQ 12-05 00:05 → 7EST 12-06 09:06
PROVIDERS: ADMIT Internal Medicine; ATTEND Internal Medicine
PROC: 0W9G3ZZ Drainage of Peritoneal Cavity, Percutaneous Approach (ICD-10-PCS; principal; 2022-12-07)
DX: A41.9 Sepsis, unspecified organism (principal); K65.1 Peritoneal abscess; K27.1 Acute peptic ulcer, site unspecified, with perforation; E44.0 Moderate protein-calorie malnutrition; E87.1 Hypo-osmolality and hyponatremia; E87.6 Hypokalemia; E11.9 Type 2 diabetes mellitus without complications; E78.00 Pure hypercholesterolemia, unspecified; E86.1 Hypovolemia; Z20.822 Contact with and (suspected) exposure to COVID-19; I10 Essential (primary) hypertension; R65.20 Severe sepsis without septic shock; K57.90 Diverticulosis of intestine, part unspecified, without perforation or abscess without bleeding; F10.21 Alcohol dependence, in remission; Z79.899 Other long term (current) drug therapy; Z68.34 Body mass index [BMI] 34.0-34.9, adult
CPT/HCPCS: 36415; 71045; 74176; 77012; 80048; 80053; 80076; 80202; 81003; 82962; 83036; 83605; 83735; 84145; 85025; 85027; 87077; 87186; 87426; 93005; 93970; 99291; C1729; C1760; C1769; C9803; J1650; J1815; J2270; J2405; J2543; J3010; J3370; J3480; J3490; J7030; J7060; L8514; Q9967

== ENCOUNTER 2023-01-26 07:55 | Inpatient (IN) | payer OTHER ==
[2023-01-26] VITALS (17 sets, daily range): BP systolic 91–159; BP diastolic 41–85
[~2023-01-26] VITALS: Ht 152.4 cm; Wt 79.4 kg
[~2023-01-26 07:55] MED LIST changes: +DOCU-138 MT; -LEVO-65 MT; +LEVO750T68 MT
[2023-01-26] MEDS ORDERED: SODIUM CHLORIDE 0.9% 1,000 ML IV ONE ×4 (08:30→13:00)
[2023-01-26 08:34] LABS: EOSINOPHILS % 0.1 % (0.0-5.0); HEMATOCRIT. 32.9 % (42.0-52.0); HEMOGLOBIN. 10.7 g/dL (14.0-18.0); LYMPHOCYTES % 9.5 % (20.0-50.0); MEAN CORPUSCULAR VOLUME 89.1 fL (80.0-94.0); MEAN PLATELET VOLUME 7.4 fl (7.4-10.4); MONOCYTES % 4.5 % (2.0-8.0); NEUTROPHILS % 85.9 % (40.0-76.0); PLATELET 399 x1000/uL (130-400); RED BLOOD CELL COUNT 3.69 mill/uL (4.7-6.1); RED CELL DISTRIBUTION WIDTH 16.7 % (11.6-14.6)
[2023-01-26 08:40] LABS: CHLORIDE 103 mEq/L (98-107); PROTHROMBIN TIME 10.3 sec (9.6-11.0)
[2023-01-26] MEDS ORDERED: IOHEXOL-300 100 ML BOTTLE ONE (11:10)
[2023-01-26] MEDS ORDERED: PIPERACILLIN/TAZ 3.375G PREMIX 50 ML IV NR (12:00)
[2023-01-26 12:05] LABS: CLARITY URINE CLEAR (CLEAR); COLOR URINE YELLOW (YELLOW); KETONES URINE NEGATIVE (NEGATIVE); LEUKOCYTE ESTERASE URINE NEGATIVE (NEGATIVE); NITRITE URINE NEGATIVE (NEGATIVE); OCCULT BLOOD URINE NEGATIVE (NEGATIVE); PROTEIN URINE NEGATIVE (NEGATIVE); SPECIFIC GRAVITY URINE 1.023 (1.005-1.030); UROBILINOGEN URINE 0.2 E.U./dL (0.2-1.0)
[2023-01-26] MEDS ORDERED: NOREPINEPHRINE 8 MG in DEXTROSE 5% WATER 250 ML IV PRN (13:15)
[2023-01-26] MEDS: PANTOPRAZOLE SODIUM 40 MG/VIAL IV SCH (16:45)
[2023-01-26] MEDS ORDERED: GUAIFENESIN 200MG/10ML SUGAR FREE UDC PO PRN (17:15)
[2023-01-26] MEDS ORDERED: MAGNESIUM/ALUMINUM HYDROXIDE/SIMETHICONE 30ML UDC PO PRN (17:15)
[2023-01-26] MEDS ORDERED: IPRATROPIUM/ALBUTEROL 0.5-3(2.5)MG/3ML NEB HHN PRN (17:15)
[2023-01-26] MEDS ORDERED: ONDANSETRON HCL 4MG/2ML INJ IV PRN (17:15)
[2023-01-26] MEDS ORDERED: CLONIDINE 0.1MG TABLET PO PRN (17:15)
[2023-01-26] MEDS ORDERED: VANCOMYCIN 1G PREMIX 200 ML IV SCH (17:15)
[2023-01-26] MEDS ORDERED: DEXTROSE 50% WATER 50ML SYRINGE IV PRN (17:15)
[2023-01-26] MEDS ORDERED: NOREPINEPHRINE 8 MG in DEXT 5% WATER 242 ML IV PRN (18:15)
[2023-01-26] MEDS ORDERED: VANCOMYCIN 1500MG in DEXTROSE 5% WATER 250ML IV NR (19:00)
[2023-01-26 19:54] LABS: HEMATOCRIT 25.4 % (42.0-52.0); HEMOGLOBIN 8.3 g/dL (14.0-18.0)
[2023-01-26] MEDS: BLOOD SUGAR DIAGNOSTIC STRIP TEST SCH (21:00)
[2023-01-26] MEDS: NOREPINEPHRINE 32 MG in DEXT 5% WATER 218 ML IV PRN (21:04)
[2023-01-26] MEDS: SODIUM CHLORIDE 0.9% 1,000 ML IV SCH (21:05)
[2023-01-26] MEDS ORDERED: PIPERACILLIN/TAZOBACTAM 3.375 G in DEXTROSE 5% WATER 50 ML IV SCH (22:00)
[2023-01-26] MEDS: INSULIN LISPRO 100 UNITS/ML SUBCUT SCH ×2 (23:00→23:03)
[2023-01-26 23:20] LABS: CREATINE KINASE 13 IU/L (39-308)
[2023-01-27] VITALS (97 sets, daily range): BP systolic 53–190; BP diastolic 22–101
[2023-01-27] MEDS: PHENYLEPHRINE 100 MG in DEXT 5% WATER 240 ML IV PRN ×2 (01:35→09:02)
[2023-01-27] MEDS: PIPERACILLIN/TAZOBACTAM 3.375 G in DEXTROSE 5% WATER 50 ML IV SCH ×4 (02:44→21:00)
[2023-01-27] MEDS: SODIUM CHLORIDE 0.9% 1,000 ML IV SCH (03:13)
[2023-01-27 04:27] LABS: HEMATOCRIT 21.6 % (42.0-52.0); MEAN CORPUSCULAR HEMOGLOBIN 29.4 pg (28.0-32.0); MEAN CORPUSCULAR VOLUME 90.8 fL (80.0-94.0); PLATELET 296 x1000/uL (130-400); RED BLOOD CELL COUNT 2.37 mill/uL (4.7-6.1); RED CELL DISTRIBUTION WIDTH 16.8 % (11.6-14.6)
[2023-01-27 04:37] LABS: CHLORIDE 112 mEq/L (98-107)
[2023-01-27 04:51] LABS: CREATINE KINASE 16 IU/L (39-308)
[2023-01-27 04:56] LABS: HDL CHOLESTEROL 27 mg/dL (40-59); LDL CHOLESTEROL 76 mg/dL (5-100); T4 FREE 1.05 ng/dL (0.76-1.46)
[2023-01-27] MEDS: BLOOD SUGAR DIAGNOSTIC STRIP TEST SCH ×4 (06:30→20:52)
[2023-01-27] MEDS: INSULIN LISPRO 100 UNITS/ML SUBCUT SCH ×4 (06:36→20:52)
[2023-01-27] MEDS ORDERED: VANCOMYCIN 1G PREMIX 200 ML IV SCH (09:00)
[2023-01-27] MEDS: PANTOPRAZOLE SODIUM 40 MG/VIAL IV SCH ×2 (09:07→18:21)
[2023-01-27] MEDS: VANCOMYCIN 750MG PREMIX 150 ML IV SCH ×2 (09:09→21:00)
[2023-01-27] MEDS ORDERED: BARIUM SULFATE 450ML ORAL SUSP PO SCH (09:30)
[2023-01-27] MEDS ORDERED: DIATR MEGLU/DIATRIZOATE SOLN 30ML PO SCH (10:00)
[2023-01-27] MEDS: NOREPINEPHRINE 32 MG in DEXT 5% WATER 218 ML IV PRN (11:28)
[2023-01-27] MEDS ORDERED: DIATRIZOATE MEGLUMINE 300ML INFUS BTL UR ONE (12:36)
[2023-01-27] MEDS: DEXT 5%/0.45% NACL 1000ML 1,000 ML IV SCH ×2 (14:12→19:45)
[2023-01-27 14:53] LABS: BG BASE EXCESS -3.2 mmol/L (-2.0-2.0); BG CARBOXYHEMOGLOBIN 0.6 % (0.5-1.5); BG DEOXYHEMOGLOBIN 3.7 % (0.0-5.0); BG FRACTION INSPIRED OXYGEN 21; BG METHEMOGLOBIN 0.3 % (0.0-1.5); BG OXYGEN SATURATION 96.3 % (92.0-98.5); BG OXYHEMOGLOBIN 95.4 % (94.0-97.0); BG PCO2 28.6 mmHg (35.0-45.0); BG PH 7.463 (7.350-7.450); BG PO2 89.6 mmHg (75.0-100.0); BG SAMPLE SITE RIGHT RADIAL; BG TOTAL HEMOGLOBIN 7.6 g/dL (12.0-18.0); BG VENT MODE ROOM AIR
[2023-01-27 16:20] LABS: HEMATOCRIT 23.1 % (42.0-52.0); HEMOGLOBIN 7.7 g/dL (14.0-18.0)
[2023-01-27 18:27] LABS: HEMATOCRIT 24.4 % (42.0-52.0); HEMOGLOBIN 7.8 g/dL (14.0-18.0)
[2023-01-28] VITALS (88 sets, daily range): BP systolic 74–140; BP diastolic 49–98
[2023-01-28 01:03] LABS: HEMOGLOBIN 7.8 g/dL (14.0-18.0)
[2023-01-28] MEDS: DEXT 5%/0.45% NACL 1000ML 1,000 ML IV SCH ×3 (05:01→22:05)
[2023-01-28] MEDS: PANTOPRAZOLE SODIUM 40 MG/VIAL IV SCH ×2 (05:18→18:00)
[2023-01-28] MEDS: PIPERACILLIN/TAZOBACTAM 3.375 G in DEXTROSE 5% WATER 50 ML IV SCH ×3 (05:18→22:02)
[2023-01-28 05:32] LABS: BASOPHILS % 0.3 % (0.0-2.0); EOSINOPHILS % 0.6 % (0.0-5.0); HEMATOCRIT. 22.7 % (42.0-52.0); HEMOGLOBIN. 7.8 g/dL (14.0-18.0); LYMPHOCYTES % 31.8 % (20.0-50.0); MEAN CORPUSCULAR VOLUME 90.7 fL (80.0-94.0); MEAN PLATELET VOLUME 7.1 fl (7.4-10.4); MONOCYTES % 7.4 % (2.0-8.0); NEUTROPHILS % 59.9 % (40.0-76.0); PLATELET 218 x1000/uL (130-400); RED CELL DISTRIBUTION WIDTH 15.9 % (11.6-14.6)
[2023-01-28 05:35] LABS: CHLORIDE 108 mEq/L (98-107)
[2023-01-28] MEDS ORDERED: KCL 20MEQ/100ML PREMIX 100 ML IV NR (08:00)
[2023-01-28] MEDS: BLOOD SUGAR DIAGNOSTIC STRIP TEST SCH ×3 (08:24→17:50)
[2023-01-28] MEDS: INSULIN LISPRO 100 UNITS/ML SUBCUT SCH ×3 (08:55→18:20)
[2023-01-28] MEDS: VANCOMYCIN 1.25GM PMX (XELLIA) 250 ML IV SCH ×2 (09:39→21:38)
[2023-01-28 12:58] LABS: HEMATOCRIT 23.5 % (42.0-52.0)
[2023-01-28] MEDS ORDERED: NOREPINEPHRINE 8MG/250ML PMX 250 ML IV SCH (13:00)
[2023-01-28] MEDS ORDERED: LIDOCAINE HCL 1% 10 MG/ML 10ML VIAL ONE (13:05)
[2023-01-28] MEDS ORDERED: SODIUM BICARBONATE 4% (2.4MEQ) 5ML VIAL IV ONE (13:05)
[2023-01-28 20:49] LABS: HEMOGLOBIN 11.1 g/dL (14.0-18.0)
[2023-01-29] VITALS (98 sets, daily range): BP systolic 58–222; BP diastolic 20–172
[2023-01-29] MEDS: BLOOD SUGAR DIAGNOSTIC STRIP TEST SCH ×4 (00:37→17:23)
[2023-01-29 05:16] LABS: BASOPHILS % 0.4 % (0.0-2.0); EOSINOPHILS % 0.5 % (0.0-5.0); HEMATOCRIT. 22.9 % (42.0-52.0); HEMOGLOBIN. 7.9 g/dL (14.0-18.0); LYMPHOCYTES % 20.6 % (20.0-50.0); MEAN CORPUSCULAR HEMOGLOBIN 30.5 pg (28.0-32.0); MEAN PLATELET VOLUME 6.9 fl (7.4-10.4); MONOCYTES % 5.6 % (2.0-8.0); NEUTROPHILS % 72.9 % (40.0-76.0); PLATELET 220 x1000/uL (130-400); RED BLOOD CELL COUNT 2.58 mill/uL (4.7-6.1); RED CELL DISTRIBUTION WIDTH 15.7 % (11.6-14.6)
[2023-01-29 05:28] LABS: CHLORIDE 110 mEq/L (98-107)
[2023-01-29] MEDS: PIPERACILLIN/TAZOBACTAM 3.375 G in DEXTROSE 5% WATER 50 ML IV SCH ×3 (05:55→21:54)
[2023-01-29] MEDS: NOREPINEPHRINE 32 MG in DEXT 5% WATER 218 ML IV PRN (05:56)
[2023-01-29] MEDS: PANTOPRAZOLE SODIUM 40 MG/VIAL IV SCH ×2 (06:12→17:59)
[2023-01-29] MEDS: INSULIN LISPRO 100 UNITS/ML SUBCUT SCH ×4 (06:14→17:22)
[2023-01-29] MEDS ORDERED: KCL 20MEQ/100ML PREMIX 200 ML IV SCH (06:45)
[2023-01-29] MEDS: VANCOMYCIN 1.25GM PMX (XELLIA) 250 ML IV SCH ×2 (10:12→21:05)
[2023-01-29] MEDS ORDERED: KCL 20MEQ/100ML PREMIX 100 ML IV SCH (10:15)
[2023-01-29] MEDS: DEXT 5%/0.45% NACL 1000ML 1,000 ML IV SCH ×2 (11:42→21:53)
[2023-01-30] VITALS (95 sets, daily range): BP systolic 82–163; BP diastolic 47–95
[2023-01-30] MEDS: INSULIN LISPRO 100 UNITS/ML SUBCUT SCH ×4 (06:00→18:00)
[2023-01-30] MEDS: PIPERACILLIN/TAZOBACTAM 3.375 G in DEXTROSE 5% WATER 50 ML IV SCH ×3 (06:25→21:14)
[2023-01-30] MEDS: BLOOD SUGAR DIAGNOSTIC STRIP TEST SCH ×4 (06:26→18:35)
[2023-01-30] MEDS: PANTOPRAZOLE SODIUM 40 MG/VIAL IV SCH ×2 (06:26→18:35)
[2023-01-30 06:41] LABS: HEMATOCRIT 22.1 % (42.0-52.0); HEMOGLOBIN 7.5 g/dL (14.0-18.0); MEAN CORPUSCULAR HEMOGLOBIN 30.9 pg (28.0-32.0); MEAN CORPUSCULAR VOLUME 90.4 fL (80.0-94.0); PLATELET 178 x1000/uL (130-400); RED BLOOD CELL COUNT 2.44 mill/uL (4.7-6.1); RED CELL DISTRIBUTION WIDTH 15.5 % (11.6-14.6)
[2023-01-30 06:54] LABS: CHLORIDE 106 mEq/L (98-107)
[2023-01-30 07:05] LABS: PHOSPHORUS 2.7 mg/dL (2.5-4.9)
[2023-01-30] MEDS: DEXT 5%/0.45% NACL 1000ML 1,000 ML IV SCH ×3 (07:53→21:15)
[2023-01-30] MEDS: VANCOMYCIN 1.25GM PMX (XELLIA) 250 ML IV SCH ×2 (08:33→21:15)
[2023-01-30] MEDS ORDERED: KCL 20MEQ/100ML PREMIX 100 ML IV NR (08:34)
[2023-01-31] VITALS (40 sets, daily range): BP systolic 92–130; BP diastolic 49–84
[2023-01-31 04:50] LABS: BASOPHILS % 0.4 % (0.0-2.0); EOSINOPHILS % 1.2 % (0.0-5.0); HEMATOCRIT. 23.8 % (42.0-52.0); HEMOGLOBIN. 8.1 g/dL (14.0-18.0); LYMPHOCYTES % 19.9 % (20.0-50.0); MEAN CORPUSCULAR HEMOGLOBIN 30.4 pg (28.0-32.0); MEAN CORPUSCULAR VOLUME 89.9 fL (80.0-94.0); MEAN PLATELET VOLUME 6.9 fl (7.4-10.4); MONOCYTES % 6.8 % (2.0-8.0); NEUTROPHILS % 71.7 % (40.0-76.0); PLATELET 240 x1000/uL (130-400); RED BLOOD CELL COUNT 2.65 mill/uL (4.7-6.1)
[2023-01-31 04:59] LABS: PROTHROMBIN TIME 11.2 sec (9.6-11.0)
[2023-01-31 05:04] LABS: CHLORIDE 108 mEq/L (98-107)
[2023-01-31] MEDS: INSULIN LISPRO 100 UNITS/ML SUBCUT SCH ×5 (06:00→22:00)
[2023-01-31] MEDS: BLOOD SUGAR DIAGNOSTIC STRIP TEST SCH ×5 (06:09→21:00)
[2023-01-31] MEDS: PIPERACILLIN/TAZOBACTAM 3.375 G in DEXTROSE 5% WATER 50 ML IV SCH ×3 (06:09→21:56)
[2023-01-31] MEDS: PANTOPRAZOLE SODIUM 40 MG/VIAL IV SCH ×2 (06:09→17:26)
[2023-01-31] MEDS: VANCOMYCIN 1.25GM PMX (XELLIA) 250 ML IV SCH (08:45)
[2023-01-31] MEDS: DEXT 5%/0.45% NACL 1000ML 1,000 ML IV SCH ×2 (08:46→22:46)
[2023-01-31] MEDS ORDERED: VANCOMYCIN 1G PREMIX 200 ML IV SCH ×2 (22:00)
[2023-02-01] VITALS (8 sets, daily range): BP systolic 93–127; BP diastolic 59–86
[2023-02-01] MEDS: INSULIN LISPRO 100 UNITS/ML SUBCUT SCH ×3 (06:00→18:00)
[2023-02-01] MEDS: BLOOD SUGAR DIAGNOSTIC STRIP TEST SCH ×3 (06:06→18:34)
[2023-02-01] MEDS: PANTOPRAZOLE SODIUM 40 MG/VIAL IV SCH ×2 (06:06→17:53)
[2023-02-01 09:59] LABS: BASOPHILS % 0.2 % (0.0-2.0); EOSINOPHILS % 1.5 % (0.0-5.0); HEMATOCRIT. 25.2 % (42.0-52.0); HEMOGLOBIN. 8.5 g/dL (14.0-18.0); LYMPHOCYTES % 21.6 % (20.0-50.0); MEAN CORPUSCULAR HEMOGLOBIN 29.9 pg (28.0-32.0); MEAN CORPUSCULAR VOLUME 88.6 fL (80.0-94.0); MEAN PLATELET VOLUME 7.1 fl (7.4-10.4); MONOCYTES % 6.8 % (2.0-8.0); NEUTROPHILS % 69.9 % (40.0-76.0); PLATELET 252 x1000/uL (130-400); RED BLOOD CELL COUNT 2.84 mill/uL (4.7-6.1); RED CELL DISTRIBUTION WIDTH 16.1 % (11.6-14.6)
[2023-02-01] MEDS: DEXT 5%/0.45% NACL 1000ML 1,000 ML IV SCH ×2 (10:12→19:45)
[2023-02-01 10:14] LABS: CHLORIDE 111 mEq/L (98-107)
[2023-02-01 10:20] LABS: PHOSPHORUS 2.6 mg/dL (2.5-4.9)
[2023-02-01] MEDS ORDERED: POLYETHYLENE GLYCOL-ELECTROLYTE 4000ML PO NR (14:00)
[2023-02-01] MEDS ORDERED: POTASSIUM PHOS,M-BASIC-D-BASIC 20 MMOL in DEXT 5% WATER 243.3333 ML IV NR (16:00)
[2023-02-02] VITALS: BP 135/53
[2023-02-02] MEDS: BLOOD SUGAR DIAGNOSTIC STRIP TEST SCH ×4 (00:38→17:05)
[2023-02-02 04:00] VITALS: BP 102/68
[2023-02-02 05:39] LABS: BASOPHILS % 0.4 % (0.0-2.0); EOSINOPHILS % 1.4 % (0.0-5.0); HEMATOCRIT. 27.4 % (42.0-52.0); HEMOGLOBIN. 9.2 g/dL (14.0-18.0); MEAN CORPUSCULAR HEMOGLOBIN 29.8 pg (28.0-32.0); MEAN CORPUSCULAR VOLUME 88.8 fL (80.0-94.0); MONOCYTES % 9.5 % (2.0-8.0); NEUTROPHILS % 63.7 % (40.0-76.0); PLATELET 325 x1000/uL (130-400); RED BLOOD CELL COUNT 3.09 mill/uL (4.7-6.1); RED CELL DISTRIBUTION WIDTH 16.3 % (11.6-14.6)
[2023-02-02] MEDS: INSULIN LISPRO 100 UNITS/ML SUBCUT SCH ×4 (06:00→18:04)
[2023-02-02] MEDS: PANTOPRAZOLE SODIUM 40 MG/VIAL IV SCH ×2 (06:08→17:03)
[2023-02-02] MEDS: DEXT 5%/0.45% NACL 1000ML 1,000 ML IV SCH (06:09)
[2023-02-02 06:15] LABS: CHLORIDE 115 mEq/L (98-107)
[2023-02-02] MEDS ORDERED: BUPIVACAINE HCL/PF 0.5% (5MG/ML) 10ML ONE (07:48)
[2023-02-02] MEDS ORDERED: CEFAZOLIN SODIUM 1000MG/VIAL ONE (08:27)
[2023-02-02] MEDS ORDERED: PROPOFOL 200MG/20ML VIAL IV ONE (08:28)
[2023-02-02] MEDS ORDERED: FENTANYL CITRATE/PF 50MCG/ML 5ML VIAL ONE (08:28)
[2023-02-02] MEDS ORDERED: METRONIDAZOLE 500 MG PREMIX 100 ML IV ONE (09:49)
[2023-02-02] MEDS ORDERED: POTASSIUM ACETATE IV NR (10:00)
[2023-02-02] MEDS ORDERED: WATER IV NR (10:00)
[2023-02-02] MEDS ORDERED: DEXT 5% IV NR (10:00)
[2023-02-02] MEDS ORDERED: HYDROMORPHONE HCL/PF 2MG/ML CPJ ONE (10:04)
[2023-02-02] MEDS ORDERED: ROCURONIUM BROMIDE 10MG/ML VIAL 5ML IV ONE (10:16)
[2023-02-02] MEDS ORDERED: FENTANYL CITRATE/PF 50MCG/ML 2ML VIAL IV PRN (11:00)
[2023-02-02] MEDS ORDERED: MEPERIDINE HCL/PF 25MG/ML CPJ IV PRN (11:00)
[2023-02-02] MEDS ORDERED: ONDANSETRON HCL 4MG/2ML INJ IV PRN ×2 (11:00→15:15)
[2023-02-02] MEDS ORDERED: GLYCOPYRROLATE 0.2 MG/ML 2ML VIAL ONE (11:44)
[2023-02-02] MEDS ORDERED: NEOSTIGMINE METHYLSULFATE 1MG/ML 10 ML VIAL ONE (11:44)
[2023-02-02] MEDS: HYDROMORPHONE HCL/PF 2MG/ML CPJ IV PRN ×2 (12:29→12:55)
[2023-02-02] MEDS ORDERED: ONDANSETRON INJ IV PRN (12:45)
[2023-02-02] MEDS ORDERED: DIPHENHYDRAMINE INJ IV PRN (12:45)
[2023-02-02] MEDS ORDERED: NALOXONE INJ IV PRN (12:45)
[2023-02-02] MEDS: HYDROMORPHONE PCA 10MG/50ML IV PRN (13:25)
[2023-02-02] MEDS ORDERED: MORPHINE SULFATE 2 MG/ML CPJ (NOT FOR IM USE) IV PRN (15:15)
[2023-02-02] MEDS ORDERED: MORPHINE SULFATE 4 MG/ML CPJ (NOT FOR IM USE) IV PRN (15:15)
[2023-02-02] MEDS: DEXT 5%/0.45% NACL KCL 20MEQ/L 1,000 ML IV SCH (16:55)
[2023-02-02 20:00] VITALS: BP 126/89
[2023-02-02] MEDS: FAMOTIDINE 20MG/2ML VIAL IV SCH (20:59)
[2023-02-03] VITALS: BP 125/91
[2023-02-03 04:00] VITALS: BP 133/93
[2023-02-03] MEDS: DEXT 5%/0.45% NACL KCL 20MEQ/L 1,000 ML IV SCH ×2 (04:30→22:18)
[2023-02-03] MEDS: PANTOPRAZOLE SODIUM 40 MG/VIAL IV SCH (06:00)
[2023-02-03] MEDS: BLOOD SUGAR DIAGNOSTIC STRIP TEST SCH ×5 (06:00→23:26)
[2023-02-03] MEDS: HYDROMORPHONE PCA 10MG/50ML IV PRN (06:50)
[2023-02-03 07:17] LABS: BASOPHILS % 0.2 % (0.0-2.0); HEMATOCRIT. 25.8 % (42.0-52.0); HEMOGLOBIN. 8.8 g/dL (14.0-18.0); LYMPHOCYTES % 10.3 % (20.0-50.0); MEAN CORPUSCULAR HEMOGLOBIN 30.1 pg (28.0-32.0); MEAN CORPUSCULAR VOLUME 88.3 fL (80.0-94.0); MEAN PLATELET VOLUME 8.1 fl (7.4-10.4); NEUTROPHILS % 83.5 % (40.0-76.0); PLATELET 309 x1000/uL (130-400); RED BLOOD CELL COUNT 2.93 mill/uL (4.7-6.1); RED CELL DISTRIBUTION WIDTH 15.6 % (11.6-14.6)
[2023-02-03 07:22] LABS: CHLORIDE 114 mEq/L (98-107)
[2023-02-03 08:00] VITALS: BP 105/71
[2023-02-03] MEDS: FAMOTIDINE 20MG/2ML VIAL IV SCH ×2 (09:25→22:18)
[2023-02-03] MEDS: INSULIN LISPRO 100 UNITS/ML SUBCUT SCH ×4 (09:32→23:25)
[2023-02-03 12:00] VITALS: BP 128/86
[2023-02-03] MEDS: DEXT 5%/0.45% NACL 1000ML 1,000 ML IV SCH ×2 (12:00→22:00)
[2023-02-03 16:00] VITALS: BP 134/90
[2023-02-03] MEDS ORDERED: NALOXONE HCL 0.4MG/ML VIAL IV PRN (19:15)
[2023-02-03 20:00] VITALS: BP 135/91
[2023-02-04] VITALS: BP 128/85
[2023-02-04] MEDS: HYDROMORPHONE PCA 10MG/50ML IV PRN (03:35)
[2023-02-04 04:00] VITALS: BP 129/81
[2023-02-04] MEDS: PANTOPRAZOLE SODIUM 40 MG/VIAL IV SCH ×2 (05:41→17:58)
[2023-02-04] MEDS: INSULIN LISPRO 100 UNITS/ML SUBCUT SCH ×3 (05:43→18:00)
[2023-02-04] MEDS: BLOOD SUGAR DIAGNOSTIC STRIP TEST SCH ×3 (06:18→18:44)
[2023-02-04 08:00] VITALS: BP 139/91
[2023-02-04] MEDS: DEXT 5%/0.45% NACL 1000ML 1,000 ML IV SCH ×2 (08:00→17:59)
[2023-02-04] MEDS: FAMOTIDINE 20MG/2ML VIAL IV SCH ×2 (09:29→20:22)
[2023-02-04] MEDS: AMLODIPINE 10MG TABLET PO SCH (10:45)
[2023-02-04 12:00] VITALS: BP 134/92
[2023-02-04 16:00] VITALS: BP 125/82
[2023-02-04 16:16] LABS: HEMATOCRIT 22.6 % (42.0-52.0); HEMOGLOBIN 7.6 g/dL (14.0-18.0); MEAN CORPUSCULAR HEMOGLOBIN 30.1 pg (28.0-32.0); MEAN CORPUSCULAR VOLUME 89.2 fL (80.0-94.0); PLATELET 315 x1000/uL (130-400); RED BLOOD CELL COUNT 2.53 mill/uL (4.7-6.1); RED CELL DISTRIBUTION WIDTH 14.7 % (11.6-14.6)
[2023-02-04 16:32] LABS: CHLORIDE 112 mEq/L (98-107)
[2023-02-04 16:40] LABS: PHOSPHORUS 2.4 mg/dL (2.5-4.9)
[2023-02-04 20:00] VITALS: BP 133/100
[2023-02-04] MEDS: METOPROLOL TARTRATE 25MG TABLET PO SCH (20:22)
[2023-02-04] MEDS ORDERED: POTASSIUM PHOS,M-BASIC-D-BASIC 20 MMOL in DEXT 5% WATER 243.3333 ML IV NR (21:00)
[2023-02-05] VITALS (11 sets, daily range): BP systolic 100–164; BP diastolic 57–80
[2023-02-05] MEDS: BLOOD SUGAR DIAGNOSTIC STRIP TEST SCH ×4 (00:15→18:13)
[2023-02-05] MEDS: HYDROMORPHONE PCA 10MG/50ML IV PRN ×2 (02:00→03:38)
[2023-02-05] MEDS: INSULIN LISPRO 100 UNITS/ML SUBCUT SCH ×4 (06:00→18:00)
[2023-02-05] MEDS: PANTOPRAZOLE SODIUM 40 MG/VIAL IV SCH (06:20)
[2023-02-05 07:28] LABS: BASOPHILS % 0.1 % (0.0-2.0); EOSINOPHILS % 1.4 % (0.0-5.0); LYMPHOCYTES % 14.4 % (20.0-50.0); MEAN CORPUSCULAR HEMOGLOBIN 30.1 pg (28.0-32.0); MEAN CORPUSCULAR VOLUME 88.1 fL (80.0-94.0); MEAN PLATELET VOLUME 7.6 fl (7.4-10.4); MONOCYTES % 3.9 % (2.0-8.0); NEUTROPHILS % 80.2 % (40.0-76.0); PLATELET 310 x1000/uL (130-400); RED BLOOD CELL COUNT 2.18 mill/uL (4.7-6.1); RED CELL DISTRIBUTION WIDTH 14.9 % (11.6-14.6)
[2023-02-05 07:39] LABS: HEMOGLOBIN. 6.5 g/dL (14.0-18.0)
[2023-02-05 07:40] LABS: HEMATOCRIT. 19.2 % (42.0-52.0)
[2023-02-05 07:46] LABS: CHLORIDE 107 mEq/L (98-107)
[2023-02-05 07:50] LABS: PHOSPHORUS 3.9 mg/dL (2.5-4.9)
[2023-02-05] MEDS: METOPROLOL TARTRATE 25MG TABLET PO SCH (09:39)
[2023-02-05] MEDS: AMLODIPINE 10MG TABLET PO SCH (09:39)
[2023-02-05] MEDS: FAMOTIDINE 20MG/2ML VIAL IV SCH ×2 (10:00→20:22)
[2023-02-05] MEDS: DEXT 5%/0.45% NACL 1000ML 1,000 ML IV SCH (18:20)
[2023-02-05 20:03] LABS: HEMATOCRIT 24.4 % (42.0-52.0); HEMOGLOBIN 8.6 g/dL (14.0-18.0)
[2023-02-05] MEDS ORDERED: POLYVINYL ALCOHOL OPHTH DROPS 15ML BOTHEYE PRN (22:00)
[2023-02-06] VITALS (9 sets, daily range): BP systolic 101–173; BP diastolic 56–89
[2023-02-06] MEDS: DEXT 5%/0.45% NACL 1000ML 1,000 ML IV SCH ×3 (02:03→20:00)
[2023-02-06] MEDS: BLOOD SUGAR DIAGNOSTIC STRIP TEST SCH ×4 (06:26→18:39)
[2023-02-06 07:02] LABS: BASOPHILS % 0.2 % (0.0-2.0); HEMATOCRIT. 27.1 % (42.0-52.0); HEMOGLOBIN. 9.5 g/dL (14.0-18.0); LYMPHOCYTES % 15.1 % (20.0-50.0); MEAN CORPUSCULAR HEMOGLOBIN 29.3 pg (28.0-32.0); MEAN CORPUSCULAR VOLUME 83.7 fL (80.0-94.0); MEAN PLATELET VOLUME 7.9 fl (7.4-10.4); MONOCYTES % 4.9 % (2.0-8.0); NEUTROPHILS % 77.8 % (40.0-76.0); PLATELET 349 x1000/uL (130-400); RED BLOOD CELL COUNT 3.24 mill/uL (4.7-6.1); RED CELL DISTRIBUTION WIDTH 15.4 % (11.6-14.6)
[2023-02-06] MEDS: AMLODIPINE 10MG TABLET PO SCH (08:46)
[2023-02-06] MEDS: METOPROLOL TARTRATE 25MG TABLET PO SCH (08:47)
[2023-02-06] MEDS: FAMOTIDINE 20MG/2ML VIAL IV SCH ×2 (08:47→21:20)
[2023-02-06 10:09] LABS: CHLORIDE 103 mEq/L (98-107)
[2023-02-06 10:13] LABS: PHOSPHORUS 2.9 mg/dL (2.5-4.9)
[2023-02-06] MEDS: INSULIN LISPRO 100 UNITS/ML SUBCUT SCH ×3 (12:00→18:00)
[2023-02-06] MEDS ORDERED: MAGNESIUM 2 G PREMIX 50 ML IV NR (14:00)
[2023-02-06] MEDS: KCL 20MEQ/100ML PREMIX 100 ML IV SCH ×2 (15:48→18:33)
[2023-02-07] VITALS: BP 123/69
[2023-02-07] MEDS: BLOOD SUGAR DIAGNOSTIC STRIP TEST SCH ×4 (00:13→18:15)
[2023-02-07 04:00] VITALS: BP 121/75
[2023-02-07] MEDS: DEXT 5%/0.45% NACL 1000ML 1,000 ML IV SCH ×2 (05:17→18:15)
[2023-02-07] MEDS: INSULIN LISPRO 100 UNITS/ML SUBCUT SCH ×4 (05:23→18:00)
[2023-02-07 07:23] LABS: BASOPHILS % 0.2 % (0.0-2.0); EOSINOPHILS % 1.1 % (0.0-5.0); HEMOGLOBIN. 9.6 g/dL (14.0-18.0); LYMPHOCYTES % 12.2 % (20.0-50.0); MEAN CORPUSCULAR HEMOGLOBIN 29.6 pg (28.0-32.0); MEAN CORPUSCULAR VOLUME 83.4 fL (80.0-94.0); MEAN PLATELET VOLUME 7.6 fl (7.4-10.4); MONOCYTES % 6.5 % (2.0-8.0); PLATELET 436 x1000/uL (130-400); RED BLOOD CELL COUNT 3.24 mill/uL (4.7-6.1); RED CELL DISTRIBUTION WIDTH 15.5 % (11.6-14.6)
[2023-02-07 07:34] LABS: CHLORIDE 105 mEq/L (98-107)
[2023-02-07 07:54] LABS: PHOSPHORUS 2.6 mg/dL (2.5-4.9)
[2023-02-07 08:00] VITALS: BP 156/79
[2023-02-07] MEDS: FAMOTIDINE 20MG/2ML VIAL IV SCH ×2 (08:58→20:23)
[2023-02-07] MEDS: METOPROLOL TARTRATE 25MG TABLET PO SCH (08:58)
[2023-02-07] MEDS: AMLODIPINE 10MG TABLET PO SCH (08:59)
[2023-02-07 12:00] VITALS: BP 139/69
[2023-02-07] MEDS: KCL 20MEQ/100ML PREMIX 100 ML IV SCH ×2 (12:22→14:48)
[2023-02-07 16:00] VITALS: BP 127/75
[2023-02-07 20:00] VITALS: BP 140/70
[2023-02-07] MEDS ORDERED: KCL 20MEQ/100ML PREMIX 100 ML IV NR (23:00)
[2023-02-08] VITALS: BP 151/76
[2023-02-08] MEDS: BLOOD SUGAR DIAGNOSTIC STRIP TEST SCH ×3 (00:07→12:11)
[2023-02-08] MEDS: DEXT 5%/0.45% NACL 1000ML 1,000 ML IV SCH ×3 (00:30→21:32)
[2023-02-08] MEDS: MORPHINE SULFATE 2 MG/ML CPJ (NOT FOR IM USE) IV PRN (01:52)
[2023-02-08 04:00] VITALS: BP 147/77
[2023-02-08 05:35] LABS: CHLORIDE 107 mEq/L (98-107)
[2023-02-08] MEDS: INSULIN LISPRO 100 UNITS/ML SUBCUT SCH ×3 (05:42→14:49)
[2023-02-08 05:50] LABS: BASOPHILS % 0.3 % (0.0-2.0); EOSINOPHILS % 1.7 % (0.0-5.0); HEMATOCRIT. 29.2 % (42.0-52.0); HEMOGLOBIN. 10.3 g/dL (14.0-18.0); LYMPHOCYTES % 14.3 % (20.0-50.0); MEAN CORPUSCULAR HEMOGLOBIN 29.7 pg (28.0-32.0); MEAN CORPUSCULAR VOLUME 84.4 fL (80.0-94.0); MEAN PLATELET VOLUME 7.8 fl (7.4-10.4); MONOCYTES % 7.9 % (2.0-8.0); NEUTROPHILS % 75.8 % (40.0-76.0); PLATELET 462 x1000/uL (130-400); RED BLOOD CELL COUNT 3.47 mill/uL (4.7-6.1); RED CELL DISTRIBUTION WIDTH 15.3 % (11.6-14.6)
[2023-02-08 08:00] VITALS: BP 145/73
[2023-02-08] MEDS: AMLODIPINE 10MG TABLET PO SCH (08:26)
[2023-02-08] MEDS: METOPROLOL TARTRATE 25MG TABLET PO SCH (08:26)
[2023-02-08] MEDS: FAMOTIDINE 20MG/2ML VIAL IV SCH ×2 (08:26→21:32)
[2023-02-08 12:00] VITALS: BP 121/62
[2023-02-08] MEDS ORDERED: KCL 10MEQ/50ML PREMIX 50 ML IV NR (12:00)
[2023-02-08 16:10] VITALS: BP 117/59
[2023-02-08 20:00] VITALS: BP 129/67
[2023-02-09] VITALS: BP 126/67
[2023-02-09] MEDS: BLOOD SUGAR DIAGNOSTIC STRIP TEST SCH ×2 (00:09→06:12)
[2023-02-09 04:00] VITALS: BP 136/75
[2023-02-09] MEDS: MORPHINE SULFATE 2 MG/ML CPJ (NOT FOR IM USE) IV PRN (05:22)
[2023-02-09] MEDS: INSULIN LISPRO 100 UNITS/ML SUBCUT SCH ×2 (06:00)
[2023-02-09 06:53] LABS: HEMATOCRIT 29.1 % (42.0-52.0); HEMOGLOBIN 10.2 g/dL (14.0-18.0); MEAN CORPUSCULAR HEMOGLOBIN 29.4 pg (28.0-32.0); PLATELET 485 x1000/uL (130-400); RED BLOOD CELL COUNT 3.47 mill/uL (4.7-6.1); RED CELL DISTRIBUTION WIDTH 15.4 % (11.6-14.6)
[2023-02-09] MEDS: DEXT 5%/0.45% NACL 1000ML 1,000 ML IV SCH (07:37)
[2023-02-09 08:00] VITALS: BP 133/70
[2023-02-09 08:49] LABS: CHLORIDE 109 mEq/L (98-107)
[2023-02-09] MEDS: AMLODIPINE 10MG TABLET PO SCH (09:19)
[2023-02-09] MEDS: METOPROLOL TARTRATE 25MG TABLET PO SCH (09:20)
[2023-02-09] MEDS: FAMOTIDINE 20MG/2ML VIAL IV SCH (10:01)
[2023-02-09] MEDS ORDERED: POTASSIUM CHLORIDE 20MEQ TABLET SR PO NR (11:00)
[2023-02-09] MEDS ORDERED: POTASSIUM CHLORIDE 10MEQ TABLET SR PO NR (11:00)
[2023-02-09 12:00] VITALS: BP 119/68
[2023-02-09 15:55] VITALS: BP 103/71
[2023-02-09 16:00] VITALS: BP 103/71
[2023-02-09] MEDS ORDERED: FAMOTIDINE 20MG TABLET PO SCH (21:00)
== END 2023-02-09 17:00 | disposition home or self-care (01) | DRG 710 ==
LOC: ER 08:05 → MICUSO 11:26 → EDBEDREQSVC 13:06 → CVICU 01-27 13:45 → 6EST 01-31 14:13
PROVIDERS: ADMIT Internal Medicine; ATTEND Internal Medicine
PROC: 02HV33Z Insertion of Infusion Device into Superior Vena Cava, Percutaneous Approach (ICD-10-PCS; 2023-01-27)
PROC: B548ZZA Ultrasonography of Superior Vena Cava, Guidance (ICD-10-PCS; 2023-01-27)
PROC: 0W9F30Z Drainage of Abdominal Wall with Drainage Device, Percutaneous Approach (ICD-10-PCS; 2023-01-28)
PROC: 0DBN0ZZ Excision of Sigmoid Colon, Open Approach (ICD-10-PCS; principal; 2023-02-02)
PROC: 0DBP0ZZ Excision of Rectum, Open Approach (ICD-10-PCS; 2023-02-02)
DX: A41.9 Sepsis, unspecified organism (principal); R57.8 Other shock; E43 Unspecified severe protein-calorie malnutrition; K57.21 Diverticulitis of large intestine with perforation and abscess with bleeding; D64.9 Anemia, unspecified; E11.9 Type 2 diabetes mellitus without complications; E66.9 Obesity, unspecified; E78.00 Pure hypercholesterolemia, unspecified; T82.868A Thrombosis due to vascular prosthetic devices, implants and grafts, initial encounter; F10.21 Alcohol dependence, in remission; I10 Essential (primary) hypertension; K80.20 Calculus of gallbladder without cholecystitis without obstruction; Z20.822 Contact with and (suspected) exposure to COVID-19; N40.0 Benign prostatic hyperplasia without lower urinary tract symptoms; Y83.8 Other surgical procedures as the cause of abnormal reaction of the patient, or of later complication, without mention of misadventure at the time of the procedure; F10.20 Alcohol dependence, uncomplicated; Z79.2 Long term (current) use of antibiotics; Z79.82 Long term (current) use of aspirin; Z79.899 Other long term (current) drug therapy; Z68.34 Body mass index [BMI] 34.0-34.9, adult; Y92.89 Other specified places as the place of occurrence of the external cause
CPT/HCPCS: 36415; 36573; 36600; 71045; 74176; 74177; 77012; 78278; 80048; 80053; 80061; 80202; 81003; 82375; 82550; 82805; 82962; 83036; 83605; 83735; 84100; 84132; 84439; 84443; 84484; 85014; 85018; 85025; 85027; 85044; 86850; 86900; 86920; 87426; 88307; 93005; 93306; 93971; 97162; 99291; A6261; A9560; C1725; C1729; C1760; C1769; C1893; C9113; J0690; J1170; J1815; J2270; J2370; J2405; J2543; J2704; J2710; J3010; J3370; J3475; J3480; J3490; J7030; J7060; L8514; P9016; Q9958; Q9963; Q9967